=== PATIENT | male | born 1945 | race Caucasian/White ===

== ENCOUNTER → 2024-07-30 13:01 | Outpatient (REF) | payer MEDICARE, SELFPAY ==
[2024-07-30 15:04] LABS: Hematocrit 39.6 % (39.0-52.0); Hemoglobin 13.7 g/dL (13.0-18.0); Mean Corp Hgb Conc. 34.6 g/dL (33.0-37.0); Mean Corpuscular Hgb 32.8 pg (27.0-31.0); Mean Corpuscular Volume 94.7 fL (80.0-94.0); Mean Platelet Volume 9.5 fL (7.4-10.4); Platelet Count 215 10^3/uL (130-400); Red Blood Cell Count 4.18 10^6/uL (4.70-6.10); Red Cell Dist. Width 13.2 % (11.5-14.5); White Blood Cell Count 7.7 10^3/uL (4.8-10.8)
[2024-07-30 15:48] LABS: Blood Urea Nitrogen 34 mg/dl (9-20); Calcium 9.8 mg/dl (8.4-10.2); Carbon Dioxide 27 mmol/L (22-30); Chloride 97 mmol/L (98-107); Glucose 93 mg/dl (70-99); Potassium 4.6 mmol/L (3.5-5.1); Sodium 138 mmol/L (135-145)
== END ==
LOC: REG 13:01
PROVIDERS: ATTENDING PHYSICIAN Internal Medicine Cardiovascular Disease; FAMILY PHYSICIAN Family Medicine
DX: I48.91 Unspecified atrial fibrillation (principal); Z79.01 Long term (current) use of anticoagulants
CPT/HCPCS: 36415; 80048; 85027; 93306

== ENCOUNTER 2024-10-04 17:52 | Emergency (ER) | payer MEDICARE, SELFPAY ==
[2024-10-04 17:55] VITALS: BP 95/63
[2024-10-04 18:00] VITALS: BP 106/71
[2024-10-04 18:10] LABS: Hematocrit 38.7 % (39.0-52.0); Hemoglobin 13.3 g/dL (13.0-18.0); Mean Corp Hgb Conc. 34.4 g/dL (33.0-37.0); Mean Corpuscular Volume 96.5 fL (80.0-94.0); Nucleated Red Blood Cells % 0 % (-); Platelet Count 178 10^3/uL (130-400); Red Cell Dist. Width 12.5 % (11.5-14.5)
[2024-10-04 18:26] VITALS: BP 106/71
[2024-10-04 18:31] VITALS: BMI 29.1
[2024-10-04 18:32] LABS: Troponin I < 0.012 ng/ml
[2024-10-04 18:56] LABS: ALT (SGPT) 14 U/L (0-50); AST (SGOT) 25 U/L (17-59); Albumin 3.9 g/dl (3.5-5.0); Alkaline Phosphatase 74 U/L (38-126); Blood Urea Nitrogen 27 mg/dl (9-20); Calcium 9.2 mg/dl (8.4-10.2); Carbon Dioxide 19 mmol/L (22-30); Chloride 102 mmol/L (98-107); Estimated Creatinine Clearance 49 ml/min; Glucose 112 mg/dl (70-99); Potassium 4.1 mmol/L (3.5-5.1); Sodium 133 mmol/L (135-145); Total Protein 7.2 g/dl (6.3-8.2); eGFR 51.77
[2024-10-04 19:00] VITALS: BP 115/75
--- NOTE | 2024-10-04 19:32 | ED.GENMED ---
History of Present Illness
General
Chief Complaint: Fainting/Passed Out
Time Seen by Provider: 10/04/24 19:30
History of Present Illness
History of Present Illness:
TIME OF INITIAL EVALUATION
- 7:30 PM
REVIEW OF OLD RECORDS
- The patient has a history of COPD/former smoker, history of A-fib and high blood pressure, and diabetes. The patient was admitted here with acute gastritis and bleeding in 2019.
Note:
CHIEF COMPLAINT(S)
Brief loss of consciousness approximately four hours ago.
HISTORY OF PRESENT ILLNESS
The patient is a 78-year-old male who experienced a brief loss of consciousness while dining at a restaurant approximately four hours prior to presentation. During the meal, the patient reportedly 'glazed over,' became unresponsive, and appeared to
'flop over' with his eyes open. Friends accompanying him at the table attempted to rouse him using a damp cloth, after which he regained consciousness within seconds to minutes.
The patient reported having consumed one alcoholic beverage prior to the episode. There was no associated chest pain. Environmental factors noted included a warm restaurant environment with inadequate air circulation, which the patient perceived as
uncomfortable.
Blood tests revealed slightly low sodium, low bicarbonate, and elevated creatinine levels, suggesting potential dehydration. Initial evaluations, including an electrocardiogram and cardiac enzyme tests, indicated no evidence of myocardial
infarction. The patient denies any current chest pain but reports a sensation of neck discomfort, although direct palpation elicits no pain.
The patient has a known medical history of atrial fibrillation and is on anticoagulation therapy. Recently, the patient started a new prescription, but the details are unavailable. He mentioned experiencing two recent falls after alcohol consumption
and new medication use, with uncertainty regarding head impact during these incidents.
ADDITIONAL HISTORY OBTAINED FROM SOURCES OTHER THAN THE PATIENT
Friends present at the incident described the patients sudden lapse into unresponsiveness and confirmed rapid recovery following interventions at the scene.
CHRONIC MEDICAL CONDITIONS SIGNIFICANTLY AFFECTING CARE
Atrial fibrillation, currently managed with anticoagulation therapy.
SOCIAL DETERMINANTS AFFECTING HEALTH
The patient reports daily alcohol consumption.
REVIEW OF SYSTEMS
- Neurological: Brief loss of consciousness. No headache currently, though neck discomfort noted.
- Cardiovascular: No chest pain reported.
- Gastrointestinal: No appetite changes or nausea reported.
PHYSICAL EXAM
General: Alert, no acute distress.
Skin: Warm, dry.
Head: Normocephalic, atraumatic.
Neck: Supple, trachea midline, no midline C-spine tenderness
Eye, Ears, Mouth, and Throat: Oral mucosa moist.
Cardiovascular: Normal peripheral perfusion, No edema, irregular rhythm, rate controlled.
Respiratory: Respirations are non-labored.
Gastrointestinal: Abdomen nondistended.
Back: Normal range of motion, Normal alignment.
Musculoskeletal: Normal range of motion, normal strength.
Neurological: Alert and oriented to person, place, time, and situation, No focal neurological deficit observed.
Psychiatric: Cooperative, appropriate mood & affect.
PROBLEM LIST
Acute:
- Syncope, possible vasovagal or dehydration-related.
- Neck discomfort, post-fall or positional.
Chronic:
- Atrial fibrillation.
PLAN
- Administer intravenous fluids to address potential dehydration.
- Obtain a CT scan of the brain due to recent falls and current anticoagulation therapy, adhering to safety protocols.
- Monitor vital signs and re-evaluate after fluid administration and imaging.
DIFFERENTIAL DIAGNOSIS
The Differential Diagnosis includes, in no particular order and is not limited to:
1. Vasovagal syncope
2. Dehydration
3. Orthostatic hypotension
4. Cardiac arrhythmia
5. Transient ischemic attack
6. Acute alcohol intoxication
7. Heat exhaustion
8. Medication side effects
9. Neurological event (seizure)
10. Head trauma consequences, given recent falls.
RADIOLOGY
- CT imaging obtained as the patient states he had a couple of falls recently. He has some pain near the back of the head and is on anticoagulation.
EKG
- Suspect A-fib/flutter, PVC, nonspecific ST abnormality
LABS
- CBC unremarkable with a hemoglobin of 13.3, sodium slightly low at 133, creatinine 1.4 and bicarb is 19, troponin less than 0.012
UPDATE
- Suspect component of dehydration. His initial blood pressure was slightly low.
SUMMARY OF ENCOUNTER
The 78-year-old male patient presented to the emergency department following a brief loss of consciousness at a restaurant about four hours prior. Upon examination and subsequent history taking, it was noted that he had consumed an alcoholic
beverage prior to the episode. The warm environment and potential dehydration were considered contributing factors. Given his known history of atrial fibrillation and anticoagulation therapy, a CT scan of the brain was conducted to rule out any
acute bleeding or trauma due to recent falls. The imaging revealed no acute hemorrhage or masses, but the ventricles appeared slightly enlarged, possibly due to chronic alcohol use or age-related changes. Laboratory tests indicated low sodium, low
bicarbonate, and elevated creatinine, suggesting dehydration. An alcohol level test was also conducted, which showed moderate alcohol consumption. The patient was advised to limit alcohol intake and was cleared for discharge with a recommendation to
follow up with a primary care physician for continued management of his conditions.
DISPOSITION
Discharge.
ASSESSMENT
Possible vasovagal syncope or dehydration-related fainting episode in the context of a warm environment and alcohol consumption.
PLAN
- Encourage hydration to address potential dehydration factors.
- Follow up with a primary care physician for further evaluation of prominent ventricles and management of atrial fibrillation.
- Recommend reduction in alcohol consumption to prevent further incidents and potential complications.
- Monitor symptoms and seek medical attention if the patient experiences similar episodes or neurological symptoms such as difficulty walking or urinary incontinence.
INDEPENDENT REVIEW OF LABS AND INTERPRETATION OF TESTS
My independent review of alcohol level indicates moderate alcohol consumption with a level around 40.
My independent review of the CT scan indicates no acute hemorrhage or masses in the brain, but noted ventricular enlargement, consistent with possible age-related changes or chronic alcohol use.
PATIENT EDUCATION AND COUNSELING
The patient was educated about the potential effects of alcohol on his health, particularly in the context of his existing medical conditions and recent falls. He was advised to reduce alcohol intake and ensure adequate hydration, especially in warm
environments.
FOLLOW-UP INSTRUCTIONS
The patient was advised to establish care with a primary care physician for ongoing management and to arrange a follow-up assessment of his neurological and cardiovascular health.
MEDICAL DECISION MAKING
- Complexity of Data Reviewed: Chronic conditions affecting care include atrial fibrillation and possible alcohol use disorder. Options considered include vasovagal syncope, dehydration, orthostatic hypotension, cardiac arrhythmia, transient
ischemic attack, acute alcohol intoxication, heat exhaustion, medication side effects, neurological events, and head trauma consequences.
- Data:
Category 1
My independent interpretation of the CT scan shows ventricular enlargement without acute abnormalities, potentially related to age or alcohol use, NPH less likely.
External record reviewed: Input from an independent historian was obtained from friends present at the incident.
- Risk:
Consideration of Admission/Observation: Escalation of care including admission/observation was considered given the complexity and risk of the patients presenting complaint and underlying comorbidities. However, I feel the patient is safe for
outpatient management with close follow-up. Reasoning: Work-up reassuring, does not reveal any acute life/organ threatening processes, patients symptoms well controlled upon reevaluation, reexamination is reassuring, vitals are stable, patient
agreeable with discharge, reliable for follow-up.
DIAGNOSIS
- Syncope, unspecified (R55)
- Dehydration (E86.0)
- Atrial fibrillation (I48.91)
Patient feels well on reassessment after IV fluids but also felt well even before IV fluids were given. He is to follow-up with PMD.
Past History
Past History
ED Past Medical History: Arrthythmia (Atrial fibrillation), HTN and Other (Traumatic pneumothorax, peptic ulcer disease)
ED Past Surgical History: Appendectomy
Social History
Personal:
Living: with family
Employment: Employed
Phy Exam
Physical Exam
Physical Exam:
See HPI
Course
Orders/Labs/Results
Orders:
Orders
10/04/24 17:58
Electrocardiogram (*1) Urgent
Reason for Study: Syncope
EKG- Treatment ONCE
10/04/24 18:02
Alcohol Urgent
Complete Blood Count/With Diff Urgent
Comprehensive Metabolic Panel Urgent
Troponin I Urgent
10/04/24 19:35
0.9% Sodium Chloride 1000 ml [Nss] 1,000 ml IV BOLUS
10/04/24 19:43
CT Head W/o Iv Contrast Urgent
Comment:
Reason For Exam: recurrent falls on anticoagulation, pain
10/04/24 19:45
Add On- LAB Urgent
Tests Added?: alcohol
Abnormal Lab Results
10/04/24
18:02
RBC 4.01 L 10^6/uL
(4.70-6.10)
Hct 38.7 L %
(39.0-52.0)
MCV 96.5 H fL
(80.0-94.0)
MCH 33.2 H pg
(27.0-31.0)
Absolute Neuts (auto) 7.0 H 10^3/uL
(1.4-6.5)
Absolute Lymphs (auto) 0.8 L 10^3/uL
(1.2-3.4)
Absolute Monos (auto) 1.0 H 10^3/uL
(0.1-0.6)
Neutrophils % 78.3 H %
(42.2-75.2)
Lymphocytes % 9.0 L %
(20.5-51.1)
Monocytes % 11.0 H %
(1.7-9.3)
Sodium 133 L mmol/L
(135-145)
Carbon Dioxide 19 L mmol/L
(22-30)
BUN 27 H mg/dl
(9-20)
Creatinine 1.4 H mg/dL
(0.7-1.3)
Glucose 112 H mg/dl
(70-99)
10/04/24 18:02
10/04/24 18:02
Vital Signs
Initial and Last Documented VS:
Initial Vital Signs
Temp Pulse Resp BP Pulse Ox
36.9 C 72 16 95/63 97
10/04/24 17:55 10/04/24 17:55 10/04/24 17:55 10/04/24 17:55 10/04/24 17:55
Last Documented Vital Signs
Temp Pulse Resp BP Pulse Ox
36.9 C 86 20 137/68 96
10/04/24 17:55 10/04/24 20:15 10/04/24 20:15 10/04/24 20:00 10/04/24 20:15
*Pulse Oximetry
SaO2: 97
Oxygen Mode of Delivery: Room air
Patient hypoxic: no
*Critical Care Note
Total Time (30-74mins, 75-104mins- exclusive of procedures): Not Applicable
ED Attending Note
-
Portions of this chart may have been created with voice recognition software.� Occasional wrong word or��sound alike� substitutions may have occurred due to the inherent limitations of voice recognition software.
Discharge Plan
Departure
Prescriptions:
No Action
sennosides [senna] 1 TABLET tablet
1 tab PO BID
acetaminophen 325 MG tablet
650 mg PO Q4HPRN PRN (Reason: pain/temp >100)
amiodarone [Pacerone] 200 MG tablet
400 mg PO BID
metoprolol succinate 50 MG tablet extended release 24 hr
50 mg PO BID
dextromethorphan-guaifenesin 10 ML syrup
5 ml PO Q6HPRN PRN (Reason: cough)
oxycodone-acetaminophen 5 MG/325 MG tablet
1 tab PO Q4HPRN PRN (Reason: pain)
magnesium hydroxide 30 ML suspension
30 ml PO HSPRN PRN (Reason: constipation)
Patient Comments:
06/25/17: If no BM x 2 days
ascorbic acid (vitamin C) [Vitamin C] 500 MG tablet
500 mg PO HS
bisacodyl [OneLAX Bisacodyl] 10 MG suppository
10 mg WI DAILYPRN PRN (Reason: if no bm x3 days)
ferrous sulfate [FeroSul] 325 MG tablet
325 mg PO BID
sodium phosphates [Enema] 135 ML enema
133 ml RC PRN PRN (Reason: if no bm x 4 days)
fluticasone propion-salmeterol [Advair HFA] 1 PUFF HFA aerosol inhaler
1 puff inhalation R BID
multivitamin with folic acid [Tab-A-Ying] 1 TABLET tablet
1 tab PO DAILY
guaifenesin 600 MG tablet extended release 12hr
600 mg PO Q12H
pantoprazole 40 MG tablet,delayed release (DR/EC)
40 mg PO BID Qty: 60 0RF
apixaban [Eliquis] 5 MG tablet
5 mg PO BID Qty: 60 0RF
diltiazem HCl 240 MG capsule,extended release 24hr
240 mg PO DAILY 30 Days Qty: 30 0RF
Referrals:
Mike Blanchard DO [Family Provider, Family Practice]
Interventions
Interventions:
*Risk Screen - Suicide Last Done: 10/04/24 17:58
*Neglect/Abuse Screening Last Done: 10/04/24 17:58
*ED- Fall Risk Assessment Last Done: 10/04/24 18:32
*ED COVID-19 Vaccine History Last Done: 10/04/24 18:32
ED- Cardiac Assessment Last Done: 10/04/24 18:32
ED- Neurological Assessment Last Done: 10/04/24 18:32
Discharge Date and Time
Print Language: KAZAKH
[2024-10-04] MEDS: NSS 1000 IV (19:48)
[2024-10-04 20:00] VITALS: BP 137/68
== END 2024-10-04 21:44 | disposition home or self-care (01) ==
LOC: EMR 17:52
PROVIDERS: EMERGENCY PHYSICIAN Emergency Medicine; FAMILY PHYSICIAN Family Medicine
DX: R55 Syncope and collapse (principal); J44.9 Chronic obstructive pulmonary disease, unspecified; I48.91 Unspecified atrial fibrillation; E11.9 Type 2 diabetes mellitus without complications; I10 Essential (primary) hypertension; E86.0 Dehydration; R29.6 Repeated falls; Z79.01 Long term (current) use of anticoagulants; Z87.11 Personal history of peptic ulcer disease; Z87.891 Personal history of nicotine dependence; Z90.49 Acquired absence of other specified parts of digestive tract
CPT/HCPCS: 99284; 96360; 70450; 80053; 82077; 84484; 85025; 93005